=== PATIENT | female | born 1970 | race Two or more races ===

== ENCOUNTER 2021-05-29 11:04 | Emergency (ER) | payer SELFPAY ==
[~2021-05-29] VITALS: Ht 167.6 cm; Wt 81.6 kg
[2021-05-29 11:50] VITALS: BP 136/84
[2021-05-29] MEDS ORDERED: IBUPROFEN 800 MG TAB PO ONE (12:45)
== END 2021-05-29 12:49 | disposition home or self-care (01) ==
LOC: ER 11:04
DX: K04.7 Periapical abscess without sinus (principal); F17.210 Nicotine dependence, cigarettes, uncomplicated; Z88.6 Allergy status to analgesic agent; Z88.8 Allergy status to other drugs, medicaments and biological substances

== ENCOUNTER 2021-08-09 09:40 | Emergency (ER) | payer MEDICAID ==
[~2021-08-09] VITALS: Ht 167.6 cm; Wt 87.5 kg
[2021-08-09] MEDS ORDERED: KETOROLAC TROMETH 60MG/2ML VIAL IM ONE (10:15)
[2021-08-09 10:20] VITALS: BP 123/78
== END 2021-08-09 11:23 | disposition home or self-care (01) ==
LOC: ER 09:40
DX: M54.40 Lumbago with sciatica, unspecified side (principal); F17.210 Nicotine dependence, cigarettes, uncomplicated; Z88.5 Allergy status to narcotic agent; Z88.8 Allergy status to other drugs, medicaments and biological substances
CPT/HCPCS: 72100; 96372; 99283; J1885